=== PATIENT | female | born 1990 | race Caucasian/White ===

== ENCOUNTER 2019-11-24 05:30 | Inpatient (IN) | payer OTHER ==
[2019-11-24] MEDS ORDERED: Promethazine HCl 25 MG/ML VIAL IM PRN (07:59)
[2019-11-24] MEDS ORDERED: NS / Oxytocin 40 units/1000ml 1,000 ML IV PRN (07:59)
[2019-11-24] MEDS ORDERED: HYDROcodone/Acetaminophen 5/325 mg Tablet PO PRN ×2 (07:59→23:41)
[2019-11-24] MEDS ORDERED: Meperidine HCl/PF 25 MG/ML VIAL IM/IV PRN (07:59)
[2019-11-24] MEDS ORDERED: hydrALAZINE 20 MG/ML VIAL SLOW IVP PRN ×2 (07:59→23:41)
[2019-11-24] MEDS ORDERED: Misoprostol 200 MCG TAB PR PRN (07:59)
[2019-11-24] MEDS ORDERED: Methylergonovine 0.2 MG/ML VIAL IM PRN (07:59)
[2019-11-24] MEDS ORDERED: Ondansetron PF 4 MG/2 ML Vial IVP PRN (07:59)
[2019-11-24] MEDS ORDERED: Carboprost 250 MCG/ML AMP IM PRN (07:59)
[2019-11-24] MEDS ORDERED: Lidocaine 1% (PF) 30 ML VIAL SC PRN (07:59)
[2019-11-24] MEDS ORDERED: Butorphanol Tartrate 1 MG/ML VIAL SLOW IVP PRN (07:59)
[2019-11-24] MEDS ORDERED: Acetaminophen 500 MG TAB PO PRN (07:59)
[2019-11-24] MEDS ORDERED: Ibuprofen 800 MG TAB PO PRN (07:59)
[2019-11-24 08:52] VITALS: BMI 29.0
[2019-11-24] MEDS: Lactated Ringer's 1,000 ML IV SCH (09:17)
[2019-11-24] MEDS: NS w/ Oxytocin 10 units 500 ML IV SCH ×2 (09:18→19:31)
[2019-11-24 10:09] LABS: Hemoglobin 12.8 g/dL (12.0-16.0); Mean Corpuscular HGB CONC 33.5 g/dL (32.0-36.0); Mean Corpuscular Hemoglobin 29.1 pg (27.0-31.0); Mean Corpuscular Volume 86.7 fL (78.0-98.0); Mean Platelet Volume 7.8 fL (7.4-10.4); Platelet Count 261 thou/uL (130-400); RBC Distribution Width 19.7 % (11.5-14.5); Red Blood Cell (RBC) Count 4.41 mill/uL (4.20-5.40); White Blood Cell (WBC) Count 5.7 thou/uL (4.8-10.8)
[2019-11-24 10:50] LABS: HBSAg Index 0.17 S/CO (0-0.99); Hep B Surf Ag Non-Reactive S/CO (NonReactive); Syphilis Antibody Nonreactive (Nonreactive); Syphilis Antibody Index 0.06 S/CO (<1.00 Non-Reactive)
--- NOTE | 2019-11-24 19:25 | PDOC.LDPN ---
Labor & Delivery Progress Note - Subjective Subjective: painful contractions - Objective Vital signs reviewed and normal: yes General: NAD Uterine fundus: non tender Dilation: 4 Effacement: 75% Station: -2 FHT: category 1, variability present [place] contractions every: 2 minutes Procedures: AROM, IUPC placed AROM: clear fluid IUPC placed: yes - Assessment (1) Term Code(s): Z34.90 - ENCNTR FOR SUPRVSN OF NORMAL , UNSP, UNSP TRIMESTER Current Visit: Yes Status: Acute (2) Encounter for trial of labor Code(s): [id number] - Current Visit: Yes Status: Acute (3) Gestational diabetes Code(s): O24.419 - GESTATIONAL DIABETES MELLITUS IN , UNSP CONTROL Current Visit: Yes Status: Acute Qualifiers: Gestational diabetes mellitus control: diet-controlled Plan: continue plan of care (Currently on pitocin 20 units. CTX appear too strong at this time - back off pitocin to 16 and monitor. )
[2019-11-24] MEDS ORDERED: Lidocaine 1% (PF) 30 ML VIAL ONE (20:54)
[2019-11-24] MEDS ORDERED: NS / Oxytocin 40 units/1000ml 1,000 ML ONE (20:54)
--- NOTE | 2019-11-24 21:49 | PDOC.OPDEL ---
OB Operative/Delivery Note Delivery Dr/Surgeon: Emmanuel Pre-Delivery Diagnosis: medically indicated induction (GDM, postdates, TOLAC) Procedure/Post Delivery Dx: spontaneous vaginal delivery (Head OA, no nuchal cord, shoulders easily followed, mouth and nares suctioned and infant placed on monther's chest, true knot in the cord.) Weeks gestation: 40 Anesthesia: local - Findings A Sex: male - 1 min: 8 - 5 min: 9 - Additional Findings/Plan Placenta delivered: spontaneous (Intact, 3 vessel cord, true knot) Repaired Obstetrical Laceration: 1st degree (Midline perineal, repaired under local anesthesia with 2.0 vicryl suture with good hemostasis) Compilations/Other Findings: Successful Post delivery plan: routine recovery
[2019-11-24] MEDS ORDERED: Milk Of Magnesia 30 ML UDCUP PO PRN (23:41)
[2019-11-24] MEDS ORDERED: NS / Oxytocin 40 units/1000ml 1,000 ML IV SCH (23:41)
[2019-11-24] MEDS ORDERED: Bisacodyl 10 MG SUPP PR PRN (23:41)
[2019-11-24] MEDS ORDERED: Benzocaine-Menthol 82.5 ML CAN TOP PRN (23:41)
[2019-11-24] MEDS ORDERED: Lanolin Ointment 7 GM TUBE TOP PRN (23:41)
[2019-11-24] MEDS ORDERED: Preparation H Ointment 57 gram tube RC PRN (23:41)
[2019-11-25] MEDS: Ibuprofen 800 MG TAB PO SCH ×3 (04:42→21:11)
[2019-11-25] MEDS: Lactated Ringer's 1,000 ML IV SCH (07:49)
[2019-11-25] MEDS: Ferrous Sulfate 325 MG TAB PO SCH ×2 (08:22→15:04)
[2019-11-25] MEDS ORDERED: Sodium Chloride 0.9% 10 ML ONE ×2 (08:30→13:39)
[2019-11-25] MEDS ORDERED: Adacel (T-DAP) 0.5 ML SYRINGE IM ONE (09:00)
[2019-11-25] MEDS ORDERED: Measles/Mumps/Rubella 10 MCG/0.5 ML VIAL SC ONE (09:00)
--- NOTE | 2019-11-25 09:09 | PDOC.PP ---
Post Progress Note Post Day #: 1 Subjective: Doing well. Soreness in the perineum and hips feel weak but otherwise well. Has not ambulated except to the bathroom. PO intake tolerated: yes Flatus: yes Ambulation: yes Vital Signs (12 hours) Temp Pulse Resp BP Pulse Ox 11/25/19 08:00 98.4 F 66 17 84/51 L 98 11/25/19 04:47 98.3 F 68 17 99/51 L 11/25/19 01:15 98.1 F 67 16 101/56 L 100 11/25/19 00:00 98.0 F 65 16 104/59 L 98 Weight Weight 159 lb - Physical Examination General: NAD Cardiovascular: no m/r/g, RRR Respiratory: clear to auscultation bilaterally, non-labored breathing Abdominal: + bowel sounds, lochia, no distention, appropriately TTP Extremities: negative homans (B) Neurological: no gross focal deficits Result Diagrams: 11/24/19 09:01 Additional Labs: Post Labs Blood Type O POSITIVE 11/24/19 09:01 Hep Bs Antigen Non-Reactive S/CO (NonReactive) 11/24/19 09:01 (1) Term Code(s): Z34.90 - ENCNTR FOR SUPRVSN OF NORMAL , UNSP, UNSP TRIMESTER Status: Acute (2) Encounter for trial of labor Code(s): [id number] - Status: Acute (3) Gestational diabetes Code(s): O24.419 - GESTATIONAL DIABETES MELLITUS IN , UNSP CONTROL Status: Acute Qualifiers: Gestational diabetes mellitus control: diet-controlled - Assessment/Plan Doing well. Ambulate and shower today. May D/C IV. Home tomorrow.
[2019-11-25] MEDS: Docusate Calcium (SURFAK) 240 MG CAP PO SCH ×2 (09:11→21:11)
[2019-11-26] MEDS: Ibuprofen 800 MG TAB PO SCH (05:26)
[2019-11-26 08:22] VITALS: BP 87/53; TEMP 97.9
[2019-11-26] MEDS: Docusate Calcium (SURFAK) 240 MG CAP PO SCH (09:22)
[2019-11-26] MEDS: Ferrous Sulfate 325 MG TAB PO SCH (09:22)
--- NOTE | 2019-11-26 10:29 | PDOC.PP ---
Post Progress Note Post Day #: 2 Subjective: Doing well. Some nipple pain but nothing unusual. Ready to go home. PO intake tolerated: yes Flatus: yes Ambulation: yes Vital Signs (12 hours) Temp Pulse Resp BP Pulse Ox 11/26/19 08:30 98 11/26/19 08:21 97.9 F 62 20 87/53 L 98 11/26/19 00:00 98.6 F 75 18 90/51 L 97 Weight Weight 159 lb - Physical Examination General: NAD Cardiovascular: no m/r/g, RRR Respiratory: clear to auscultation bilaterally Abdominal: + bowel sounds Extremities: negative homans (B) Result Diagrams: 11/24/19 09:01 Additional Labs: Post Labs Blood Type O POSITIVE 11/24/19 09:01 Hep Bs Antigen Non-Reactive S/CO (NonReactive) 11/24/19 09:01 (1) Term Code(s): Z34.90 - ENCNTR FOR SUPRVSN OF NORMAL , UNSP, UNSP TRIMESTER Status: Acute (2) Encounter for trial of labor Code(s): [id number] - Status: Acute (3) Gestational diabetes Code(s): O24.419 - GESTATIONAL DIABETES MELLITUS IN , UNSP CONTROL Status: Acute Qualifiers: Gestational diabetes mellitus control: diet-controlled - Assessment/Plan Routine PP care D/C home F/U in 6 weeks.
== END 2019-11-26 12:10 | disposition home or self-care (01) | DRG 807 ==
LOC: L&D 08:04 → 3SW 11-25 00:34
PROVIDERS: ADMIT Family Medicine; ATTEND Family Medicine
PROC: 10E0XZZ Delivery of Products of Conception, External Approach (ICD-10-PCS; principal; 2019-11-24)
PROC: 3E033VJ Introduction of Other Hormone into Peripheral Vein, Percutaneous Approach (ICD-10-PCS; 2019-11-24)
PROC: 0HQ9XZZ Repair Perineum Skin, External Approach (ICD-10-PCS; 2019-11-24)
DX: O48.0 Post-term pregnancy (principal); Z37.0 Single live birth; Z3A.40 40 weeks gestation of pregnancy; O24.429 Gestational diabetes mellitus in childbirth, unspecified control; O70.0 First degree perineal laceration during delivery
CPT/HCPCS: 36415; 36416; 85027; 86780; 86850; 86900; 86901; 87340; J2001; J2590

== ENCOUNTER 2020-03-12 14:43 | Outpatient (CLI) | payer OTHER ==
--- NOTE | 2020-03-12 16:27 | CT ---
CT BRAIN WITHOUT CONTRAST: 03/12/20 HISTORY: Facial trauma. Post concussion syndrome. FINDINGS: No evidence of acute infarct, hemorrhage, midline shift or abnormal extra-axial fluid collections are seen. The ventricular size is normal and the basilar cisterns patent. The bony calvarium is intact. The visualized paranasal sinuses and mastoid air cells are well aerated. IMPRESSION: No CT evidence of acute intracranial process. POS: KYLEEA
--- NOTE | 2020-03-12 16:37 | CT ---
CT FACIAL BONES: 03/12/20 INDICATION: Injury right orbit one month ago. Persistent pain. FINDINGS: No soft tissue swelling over the orbits seen on soft tissue windows. Nasal bones appear intact. Orbits appear intact. Lamina papyracea intact. Paranasal sinuses are well aerated and are clear. The maxilla appears intact. Zygoma appear intact. M andible appears intact. IMPRESSION: No evidence of facial bone fractures. POS: AGW
== END 2020-03-12 14:44 | disposition home or self-care (01) ==
LOC: SCSCT 14:43
PROVIDERS: ATTEND Family Medicine
DX: S09.93XA Unspecified injury of face, initial encounter (principal); F07.81 Postconcussional syndrome
CPT/HCPCS: 70450; 70486